=== PATIENT | female | born 1980 | race Two or more races ===

== ENCOUNTER 2016-10-17 23:51 | Inpatient (IN) | payer BC ==
[~2016-10-17] VITALS: Ht 154.9 cm; Wt 78.2 kg
--- NOTE | ~2016-10-17 | OR ---
PATIENT'S NAME: [facility] AGE: 36 Y [address] ROOM: [address] [address] LOCATION: [facility] ADMIT DATE: 10/17/2016 OR/Procedure Report DISCHARGE DATE: 10/20/2016 FAMILY PHYSICIAN: Lucille Osei MD ATTENDING PHYSICIAN: Lucille Osei SURGEON: José Razo MD PUTAWAY DRIVER: DATE OF PROCEDURE: 10/19/2016 DELIVERY DATE: October 19, 2016. PREOPERATIVE DIAGNOSIS: Term intrauterine at 38 weeks and 6 days. POSTOPERATIVE DIAGNOSIS: Term intrauterine at 38 weeks and 6 days. PROCEDURE: Spontaneous vaginal delivery. ANESTHESIA: Epidural. ESTIMATED BLOOD LOSS: 250 mL. INDICATIONS: The patient is a 36-year-old, G4, P2-0-1-2, who presented to Labor and Delivery in active labor. Her has been uncomplicated. The patient progressed normally through labor and had artificial rupture of membranes which were clear and then was found to be complete. FINDINGS: Male infant, Apgars of 5 at 1 minute, 8 at 5 minutes, and 9 at 10 minutes with a weight of 8 pounds and 6 ounces. Cord blood was drawn. Intact placenta with 3-vessel cord. No cervical or vaginal lacerations, but a second- degree midline perineal laceration was noted. DESCRIPTION OF PROCEDURE: The patient had sterile drape placed under her buttocks. head was delivered with expulsive effort over an intact perineum. Nuchal cord was noted and fetus was noted to have a shoulder dystocia. Nurse applied suprapubic pressure and dystocia was resolved within 10 seconds. The rest of the fetus was then delivered. Nose was suctioned, cord was clamped, and handed to the waiting nurse. Cord blood was drawn. Placenta was delivered spontaneously, intact 3-vessel cord. Cervix and vagina were examined and noted to be free of lacerations and the perineum had a midline second-degree, which was repaired with 3-0 Vicryl. COMPLICATIONS: None. CONDITION: Mother stable in room. PATIENT'S NAME: [facility] AGE: 36 Y [address] ROOM: [address] [address] LOCATION: [facility] ADMIT DATE: 10/17/2016 OR/Procedure Report DISCHARGE DATE: 10/20/2016 FAMILY PHYSICIAN: Lucille Osei MD ATTENDING PHYSICIAN: Lucille Osei PATHOLOGY: None. MD SHARON CHOWDHURY/modl /[id number] d: 10/19/16133 t: 10/28/162022, OPERATIVE SUMMARY
--- NOTE | ~2016-10-17 | HP ---
PATIENT'S NAME: [facility] AGE: 36 Y [address] ROOM: [address] [address] LOCATION: BS ADMIT DATE: 10/17/2016 History & Physical DISCHARGE DATE: 10/20/2016 FAMILY PHYSICIAN: Lucille Osei MD ATTENDING PHYSICIAN: Lucille Osei DATE OF SERVICE: This is a brief H and P and this should be amended to this patient's record. The patient is and presented to the hospital with signs and symptoms of labor. The patient was monitored and the patient did receive some pain medications prior to labor epidural being placed. Remainder of the care will be directed by Dr. Osei. The record was reviewed and correct. MD CORY MANNINGP/modl /[id number] D: [id number] T: [id number] HISTORY & PHYSICAL
[2016-10-18] MEDS ORDERED: PRENATAL 1+1)(P1 TAB PO (01:22)
[2016-10-18] MEDS ORDERED: FEOSOL325 MG PO (01:23)
[2016-10-18 02:53] LABS: BASOPHIL % 0.4 %; EOSINOPHIL # 0.1 K/uL (0.0-0.5); EOSINOPHIL % 0.7 %; HEMATOCRIT 37.1 % (33.0-46.0); HEMOGLOBIN 12.1 g/dL (11.0-15.0); IMMATURE GRANULOCYTE % 0.3 %; LYMPHOCYTE # 1.8 K/uL (0.8-4.0); LYMPHOCYTE % 24.3 %; MCH 29.8 pg (27.0-34.0); MCHC 32.6 gm/dL (32.0-36.5); MCV 91.4 fl (83.0-98.0); MONOCYTE # 0.6 K/uL (0.0-1.0); MONOCYTE % 7.7 %; MPV 13.3 fl (9.4-12.4); NEUTROPHIL # (ANC) 4.8 K/uL (1.8-7.8); NEUTROPHIL % 66.6 %; NRBC % 0 /100WBC (0-0.00); PLATELET COUNT 188 K/uL (150-450); RBC 4.06 M/uL (3.50-5.50); RDW-CV 15.5 % (11.9-14.6); WBC 7.3 K/uL (4.0-11.0)
--- NOTE | 2016-10-18 05:45 | NUR ---
0.5cm, 90%, -2, pain 8, 3rd dose of Fentanyl given at 0526, small amount of bleeding, membranes intact, UCs 2-4 min, FHTs moderate, 15x15, 130-145
--- NOTE | 2016-10-18 17:54 | NUR ---
Last VS: T:97.7 P:90 R: 16 BP: 125/82 Pain ratin . Last pain med: Epidural Medicated at: Effective: Yes FHT:145 Dilatation:6 Effacement 100%: Station: -1 Significant event: AROM @ 1626 CLEAR FLUID. IV PITOCIN STARTED @ 1645. ON 5MU. RARE VARIABLE DECEL WITH CONTRACTION. MOD. LTV. DR. Jona LONG FOLLOWING PATIENT AND INFANT. WILL NEED MMR AFTER DELIVERY.
--- NOTE | 2016-10-18 17:58 | NUR ---
Mery rojas following Sn.
--- NOTE | 2016-10-19 05:10 | NUR ---
VSS, fundus firm, midline, 1 down, small flow, 2 Percocet at 0248, IV out
[2016-10-19 05:43] LABS: BASOPHIL % 0.3 %; EOSINOPHIL % 0.2 %; HEMATOCRIT 33.6 % (33.0-46.0); IMMATURE GRANULOCYTE % 0.3 %; LYMPHOCYTE # 1.8 K/uL (0.8-4.0); LYMPHOCYTE % 14.3 %; MCH 30.3 pg (27.0-34.0); MCHC 32.7 gm/dL (32.0-36.5); MCV 92.6 fl (83.0-98.0); MONOCYTE # 0.8 K/uL (0.0-1.0); MONOCYTE % 6.3 %; MPV 12.1 fl (9.4-12.4); NEUTROPHIL # (ANC) 9.6 K/uL (1.8-7.8); NEUTROPHIL % 78.6 %; NRBC % 0 /100WBC (0-0.00); PLATELET COUNT 161 K/uL (150-450); RBC 3.63 M/uL (3.50-5.50); RDW-CV 15.8 % (11.9-14.6); WBC 12.2 K/uL (4.0-11.0)
--- NOTE | 2016-10-19 17:25 | NUR ---
10/19/16 [id number] I HAVE REVIEWED AND AGREE WITH ALL DOCUMENTATION BY STUDENT NURSE, REPORT GIVEN TO DIEGO RN @ [id number] AND SHE SUPERVISES STUDENT NURSE ON UNIT. NOHEMY FRANKLIN
--- NOTE | 2016-10-19 17:47 | NUR ---
PAINTENT VOIDING WELL THIS SHIFT. FUNDUS FIRM, MIDLINE, ONE FINGER BELOW UMBILICUS. SMALL FLOW. LAST 2 PERCOCET GIVEN AT 1620. SALINE LOCK REMOVED.
--- NOTE | 2016-10-20 04:37 | NUR ---
VSS, indepent with cares, last had Motrin at 1950 and Percocet at 0241
[2016-10-20] MEDS ORDERED: SURFAK240 MG PO (10:22)
[2016-10-20] MEDS ORDERED: DERMOPLAST SPRA56 GM TOP (10:23)
[2016-10-20] MEDS ORDERED: MOTRIN800 MG PO (10:24)
[2016-10-20] MEDS ORDERED: PERCOCET 5-3251 EACH PO (10:25)
== END 2016-10-20 11:30 | disposition disaster alternative care site (69) | DRG 775 ==
LOC: GOBS 23:51 → GOBM 10-26 11:59 → EDSTATUS 10-26 23:50
PROVIDERS: Family Medicine; ADMIT Family Medicine
PROC: 10907ZC Drainage of Amniotic Fluid, Therapeutic from Products of Conception, Via Natural or Artificial Opening (ICD-10-PCS; principal; 2016-10-19)
PROC: 10E0XZZ Delivery of Products of Conception, External Approach (ICD-10-PCS; principal; 2016-10-19)
DX: O80 Encounter for full-term uncomplicated delivery (principal); Z37.0 Single live birth; Z3A.38 38 weeks gestation of pregnancy
CPT/HCPCS: J2590; J3010; J7120